=== PATIENT | female | born 1980 | race Caucasian/White ===

== ENCOUNTER 2016-11-22 17:33 | Observation (INO) | payer OTHER ==
[2016-11-22] MEDS ORDERED: LIDOCAINE 1% 30 ML SDV ONE (17:53)
[2016-11-22] MEDS ORDERED: AMMONIA AROMATIC 1 EACH AMP IH ONE (17:54)
[2016-11-22] MEDS ORDERED: TERBUTALINE SULFATE 1 MG/ML VIAL ONE (17:54)
[2016-11-22] MEDS ORDERED: OXYTOCIN 10 UNIT/ML VIAL ONE (17:54)
[2016-11-22] MEDS ORDERED: METHYLERGONOVINE MAL 0.2 MG/ML INJ ONE (17:55)
[2016-11-22] MEDS ORDERED: MISOPROSTOL 200 MCG TAB ONE (17:55)
[2016-11-22 18:14] LABS: HEMATOCRIT 37.7 % (38.0-47.0); HEMOGLOBIN 13.4 g/dL (12.6-16.3); MEAN CELL HEMOGLOBIN CONCENTR. 35.5 g/dL (32.4-36.7); MEAN CELL VOLUME 92.9 fL (81.5-99.8); RED BLOOD CELL COUNT 4.06 10^6/uL (4.18-5.33); RED CELL DISTRIBUTION WIDTH 11.4 % (11.5-15.2)
[2016-11-22] MEDS ORDERED: LR 1,000 ML IV ONE (18:30)
[2016-11-22] MEDS ORDERED: LR 1,000 ML IV SCH ×2 (18:30→19:30)
[2016-11-22] MEDS ORDERED: METHYLERGONOVINE MAL 0.2 MG/ML INJ IM ONE (18:30)
[2016-11-22] MEDS ORDERED: ONDANSETRON 4 MG/2 ML VIAL IVP PRN (19:08)
[2016-11-22] MEDS ORDERED: ACETAMINOPHEN 325 MG TAB PO PRN (19:08)
[2016-11-22] MEDS ORDERED: HYDROCODONE/APAP 5/325 TAB PO PRN (19:08)
[2016-11-22] MEDS ORDERED: METHYLERGONOVINE MAL 0.2 MG TAB PO SCH (19:30)
[2016-11-22] MEDS ORDERED: DOXYCYCLINE INJ 100 MG in NS 250 ML IV ONE (19:31)
--- NOTE | 2016-11-22 19:42 | GHP ---
[f rep st] HISTORY AND PHYSICAL DATE OF ADMISSION: 11/22/2016 CHIEF COMPLAINT: Vaginal bleeding. HISTORY OF PRESENT ILLNESS: The patient is a 35-year-old 1, para 0 female diagnosed with a missed on 11/06/2016 at 11 weeks and 1 day estimated gestational age by last menstrual paramjit od. She was found to have a missed with an ultrasound confirming a missed , with a crown-rump length measuring 2.4 cm, with no cardiac activity seen on Doppler color flow. The patient was counseled at that time regarding options for management, and she desired to consider he r options at that time. She re-presented for followup today and reported light bleeding that starte d on 11/08/2016, requiring 3 pads total a day. She reported having heavier bleeding approximately 4 days prior to admission, but requiring only 4 pads a day. She does not think she passed any tissue . On exam in clinic, the patient was noted to have tissue at the cervical os, which was teased out with ring forceps. There was a significant amount of tissue that came out, all intact. During jennifer andrés of this tissue, the gestational sac did break and clear fluid was noted. After a significant am ount of tissue was removed in clinic that was all intact in 1 piece, the patient initially had a sma ll amount of bleeding that quickly turned into heavy bleeding. The patient was counseled with her h usband regarding the need to proceed to the operating room emergently for a suction dilation and cur ettage. She was then transferred to labor and delivery. Her vital signs remained stable at this ti al. She was counseled and consent obtained to proceed with surgery. PAST MEDICAL HISTORY: Lipoma. PAST SURGICAL HISTORY: Lipoma removed. ALLERGIES: To fluconazole and sulfa. SOCIAL HISTORY: Patient is and denies any tobacco, alcohol, or drug use. OBJECTIVE: VITAL SIGNS: Blood pressure 106/68 and pulse of 70. Repeat blood pressure in the opera ting room was 120/65. GENERAL: No acute distress. Well developed, well nourished. CHEST: Clear to auscultation bilaterally. CARDIOVASCULAR: Regular rate and rhythm. ABDOMEN: Nontender. PELVIC : A speculum exam was performed in clinic with significant tissue removed with a ring forceps and s ent to Pathology. She then had active arterial bleeding begin in clinic and was transferred emergen tly to the hospital. Estimated blood loss in the clinic was approximately 100 cc. Estimated blood loss prior to surgery was 270 cc. An additional blood loss intraoperatively was approximately 100 cc. LABS: Drawn upon admission showed a CBC with a hematocrit of 37. Blood type is O positive. ASSESSMENT: Patient is a 35-year-old 1, para 0, with an incomplete with hemorrhage , currently hemodynamically stable. PLAN: Admit to the operating room for an emergent suction dilation and curettage. 1. Admit to the operating room. 2. Doxycycline 100 mg IV continuity clerk to the operating room. 3. The patient counseled with her present and consent obtained. All questions answered. A ll risks, benefits, indications, and alternatives to the surgery were reviewed in depth, to include risks of infection, bleeding, damage to surrounding structures and organs, uterine perforation, bloo d transfusion. She agreed to proceed. /[id number]/MODL
[2016-11-22] MEDS ORDERED: OXYTOCIN 100 UNITS/10 ML VIAL ONE (20:00)
[2016-11-22] MEDS ORDERED: SUCCINYLCHOLINE CHLORIDE 200 MG/10 ML VIAL ONE (20:00)
[2016-11-22] MEDS ORDERED: ONDANSETRON 4 MG/2 ML VIAL ONE (20:00)
[2016-11-22] MEDS ORDERED: PROPOFOL/EMULSION 500 MG/50 ML BOTTLE IV ONE (20:00)
[2016-11-22] MEDS ORDERED: fentaNYL 100 MCG/2 ML INJ ONE (20:00)
--- NOTE | 2016-11-22 20:02 | GOP ---
[f rep st] OPERATIVE REPORT DATE OF OPERATION: 11/22/2016 SURGEON: Dary Aiken MD ENGINEERING DOCUMENTATION SPECIALIST: Lavinia Sandoval MD providing ultrasound guidance. ANESTHESIA: General. ANESTHESIOLOGIST: Tereso Cardenas MD. PREOPERATIVE DIAGNOSIS: Incomplete with hemorrhage. POSTOPERATIVE DIAGNOSIS: Incomplete with hemorrhage. PROCEDURE PERFORMED: Suction dilation and curettage. FINDINGS: 1. Estimated blood loss in clinic was 100 cc, estimated blood loss prior to surgery was 2 70 cc on Labor and Delivery, intraoperative blood loss was 75 cc with approximately another 25 cc in the Chux pad for a total of 470 cc. 2. Her bleeding was treated with 1 preoperative dose of Methergine immediately prior to the operatin g room, 1 intraoperative dose of Methergine, rectal Cytotec, and IV Pitocin. 3. A Anne catheter was placed in the uterus and inflated with 30 cc of saline to provide tamponade. ESTIMATED BLOOD LOSS: 75 cc. INDICATIONS: The patient is a 35-year-old, 1, para 0, now abortus 1, female with a missed a bortion diagnosed approximately 2 weeks prior to admission. In clinic, she passed a significant kim unt of tissue and started hemorrhaging. DESCRIPTION OF PROCEDURE: The patient was taken to the operating room where general anesthesia was found to be adequate. Patient was prepared and draped in normal sterile fashion in the dorsal litho alisia position. A weighted speculum was placed in the vagina. A Ross retractor used to visualize th e cervix clearly. A single-toothed tenaculum was placed on the anterior lip of the cervix and the c ervix was found to be already dilated at 11 mm, which was confirmed with Hanks dilators. An 11 mm r igid curved suction curette was attached to tubing and pressure was confirmed to be adequate at 50 m mHg. The curette was then placed into the cervix and advanced into the uterine cavity. This curett e was rotated to clear the uterus of all tissue and clots and debris. The suction curette was remov ed and a sharp curettage was performed with a gritty texture noted circumferentially. It was confir med on ultrasound that there was no obvious retained tissue with no hyperechoic findings and a thin endometrial stripe. The ultrasound was performed by Dr. Lavinia Sandoval. Due to the bleeding during the procedure, a dose of Methergine was administered, and there was still a trickle bleeding noted a fter the repeat suction curettage was performed. Therefore, 800 mcg of Cytotec was administered rec tally. The patient was monitored further and the decision was made to place a Anne catheter into t he uterine cavity, which was placed with no complications, and the balloon was inflated with 30 cc o f saline to provide tamponade affect to stop her bleeding. Hemostasis was obtained at the tenaculum site with silver nitrate and then the speculums were removed. Of note, the bladder was drained enrrique or to the procedure and emptied of approximately 600 cc of urine. All sponge and lap counts were co rrect x2. The patient was transferred to the PACU in stable and good condition. We will plan to keep the patient on oral Methergine overnight and remove the catheter in the morning with a plan for discharge home at that time. COMPLICATIONS: None. DRAINS: Anne catheter placed into the uterine cavity. URINE OUTPUT: 600 cc. FLUIDS REPLACED: 2000 cc. /[id number]/MODL
[2016-11-22] MEDS ORDERED: METOCLOPRAMIDE 10 MG/2 ML VIAL ONE (20:16)
[2016-11-22] MEDS: METHYLERGONOVINE MAL 0.2 MG TAB PO SCH (22:26)
[2016-11-23] MEDS: METHYLERGONOVINE MAL 0.2 MG TAB PO SCH ×3 (02:20→10:28)
[2016-11-23 02:26] VITALS: RESP 18
[2016-11-23 06:29] VITALS: BP 98/55; PULSE 71; TEMP 99.9; O2SAT 98
[2016-11-23 06:32] LABS: % IMMATURE GRANULYOCYTES 0.5 % (0.0-1.1); ABSOLUTE IMMATURE GRANULOCYTES 0.05 10^3/uL (0.00-0.10); ADD DIFF? NO; ADD MORPH? NO; ADD SCAN? NO; ATYPICAL LYMPHOCYTE FLAG 0 (0-99); FRAGMENT RBC FLAG 0 (0-99); HEMATOCRIT 32.5 % (38.0-47.0); HEMOGLOBIN 11.8 g/dL (12.6-16.3); LEFT SHIFT FLG 0 (0-99); LIPEMIA HEMOLYSIS FLAG 90 (0-99); MEAN CELL HEMOGLOBIN 33.4 pg (27.9-34.1); MEAN CELL HEMOGLOBIN CONCENTR. 36.3 g/dL (32.4-36.7); MEAN CELL VOLUME 92.1 fL (81.5-99.8); MEAN PLATELET VOLUME 10.8 fL (8.7-11.7); PLATELET CLUMPS FLAG 0 (0-99); PLATELET COUNT 172 10^3/uL (150-400); RED BLOOD CELL COUNT 3.53 10^6/uL (4.18-5.33); RED CELL DISTRIBUTION WIDTH 11.5 % (11.5-15.2)
--- NOTE | 2016-11-23 10:13 | PDDCSUM ---
Discharge Summary Discharge Summary: Date of discharge: 11/23/16 Service: [employer] Program Manager Attending: Attila/Jaime Diagnosis at admission: Hemorrhage from incomplete SAB at 11 weeks Diagnosis at discharge: Complete SAB Procedures: Suction D&C under US guidance Consults: Anesthesia Complications: None Follow-up: [address] Aiken Instructions: Nothing in the vagina x 2 weeks. Call for fevers, pain, heavy bleeding. Hospital course: Pt is a 35 yo who was diagnosed with demise at 11w1d. She desired expectant management, but then was evaluated in the office yesterday with multiple days of bleeding at home. In the office the gestational sac was noted to be at the external os. It was removed with ring forceps, but then the patient began to have heavier bleeding. She was brought to the OR for an urgent D&C for incomplete SAB. A dose of IV doxycycline was given. An uncomplicated suction D&C was performed and all POC was removed. She had ongoing light bleeding after the procedure despite uterotonics and a osborn bulb was placed with 30 ml normal saline with resolution of bleeding. Total EBL 475 ml including from the office. The patient was watched overnight in the hospital. On POD#1 she was meeting all milestones for discharge including ambulating, voiding, tolerating regular diet, pain controlled with oral medications. The osborn bulb was removed and her bleeding did not resume. Laboratory Results 11/23/16 06:20 11/23/16 06:20 WBC 10.59 10^3/uL H 10^3/uL (3.80-9.50) RBC 3.53 10^6/uL L 10^6/uL (4.18-5.33) Hgb 11.8 g/dL L g/dL (12.6-16.3) Hct 32.5 % L % (38.0-47.0) MCV 92.1 fL fL (81.5-99.8) MCH 33.4 pg pg (27.9-34.1) MCHC 36.3 g/dL g/dL (32.4-36.7) RDW 11.5 % % (11.5-15.2) Plt Count 172 10^3/uL 10^3/uL (150-400) MPV 10.8 fL fL (8.7-11.7) Neut % (Auto) 75.7 % H % (39.3-74.2) Lymph % (Auto) 15.1 % % (15.0-45.0) [place] % (Auto) 7.2 % % (4.5-13.0) Eos % (Auto) 1.0 % % (0.6-7.6) Baso % (Auto) 0.5 % % (0.3-1.7) Nucleat RBC Rel Count 0.0 % % (0.0-0.2) Absolute Neuts (auto) 8.02 10^3/uL H 10^3/uL (1.70-6.50) Absolute Lymphs (auto) 1.60 10^3/uL 10^3/uL (1.00-3.00) Absolute Monos (auto) 0.76 10^3/uL 10^3/uL (0.30-0.80) Absolute Eos (auto) 0.11 10^3/uL 10^3/uL (0.03-0.40) Absolute Basos (auto) 0.05 10^3/uL 10^3/uL (0.02-0.10) Absolute Nucleated RBC 0.00 10^3/uL 10^3/uL (0-0.01) Immature Gran % 0.5 % % (0.0-1.1) Immature Gran # 0.05 10^3/uL 10^3/uL (0.00-0.10) Medications to Continue on Transfer Ascorbic Acid [Vitamin C 500 mg (*)] 500 mg PO DAILY 11/22/16 [Last Taken 21:30] Dextroamphetamine/Amphetamine [Adderall Xr 20 mg Capsule] 20 mg PO PRN 11/22/16 [Last Taken 11/21/16 08:00] Ferrous Sulfate 325 mg PO DAILY 11/22/16 [Last Taken 11/21/16 21:30] Vit27&Calcium/Iron/FA [] 1 each PO DAILY 11/22/16 [Last Taken 11/21/16 08:00] Vitamin B Complex [B Complex] 1 each PO 11/22/16 [Last Taken 11/21/16] Ibuprofen [Motrin (*)] 600 mg PO Q6H #60 tab 11/23/16 [Last Taken Unknown] Discharge Medications Discharge Observation Discharge Date/Time: Observation Discharge Disposition: Home, Routine, Self-Care Observation Discharge Comment: Surgical Day Care Discharge Date/Time: Surgical Day Care Discharge Disposition: Surgical Day Care Discharge Comment: Instructions: Prescriptions: Ibuprofen [Motrin (*)] Lavinia Sandoval
== END 2016-11-23 12:00 | disposition home or self-care (01) ==
LOC: FOBOP 17:33 → FLD 19:09 → EDSTATUS 11-23 08:17 → UNDODISOB 11-23 12:00 → FLD 11-23 13:15
PROVIDERS: ADMIT Obstetrics & Gynecology; ATTEND Obstetrics & Gynecology
PROC: 10D17ZZ Extraction of Products of Conception, Retained, Via Natural or Artificial Opening (ICD-10-PCS; principal; 2016-11-22)
DX: O03.1 Delayed or excessive hemorrhage following incomplete spontaneous abortion (principal); Z3A.11 11 weeks gestation of pregnancy
CPT/HCPCS: 59812; G0378; J0330; J2210; J2405; J2590; J2704; J2765; J3010; J3105

== ENCOUNTER → 2019-01-05 | Outpatient (CLI) | payer OTHER | LOC: FIMAGING 09:24 | PROVIDERS: ATTEND Obstetrics & Gynecology | DX: O09.522 Supervision of elderly multigravida, second trimester (principal); I34.1 Nonrheumatic mitral (valve) prolapse; Q23.1 Congenital insufficiency of aortic valve; Z3A.20 20 weeks gestation of pregnancy ==

== ENCOUNTER → 2019-02-04 | Outpatient (CLI) | payer OTHER | LOC: FIMAGING 14:27 | PROVIDERS: ATTEND Obstetrics & Gynecology | DX: Z12.31 Encounter for screening mammogram for malignant neoplasm of breast (principal); Z3A.25 25 weeks gestation of pregnancy ==